=== PATIENT | male | born 1985 | race Caucasian/White ===

== ENCOUNTER 2017-01-23 18:54 | Emergency (ER) | payer SELFPAY ==
[~2017-01-23] VITALS: Ht 170.2 cm; Wt 86.3 kg
[~2017-01-23 18:54] MED LIST: CEPHALEXIN500 MG PO; NAPROSYN500 MG PO; ROBITUSSIN AC10 ML PO
[2017-01-23] MEDS ORDERED: LORTAB 10-325 M1 TAB PO (20:41)
[2017-01-23 20:54] VITALS: BP 140/86
== END 2017-01-23 21:05 | disposition home or self-care (01) | DRG 605 ==
LOC: ED 18:54
DX: S90.01XA Contusion of right ankle, initial encounter (principal); S90.31XA Contusion of right foot, initial encounter; W17.89XA Other fall from one level to another, initial encounter; X50.1XXA Overexertion from prolonged static or awkward postures, initial encounter; Y93.89 Activity, other specified; Y92.89 Other specified places as the place of occurrence of the external cause

== ENCOUNTER 2017-01-26 16:08 | Emergency (ER) | payer SELFPAY ==
[~2017-01-26] VITALS: Ht 170.2 cm; Wt 86.0 kg
[~2017-01-26 16:08] MED LIST changes: +LORTAB 10-325 M1 TAB PO
[2017-01-26] MEDS ORDERED: MOTRIN800 MG PO (16:27)
[2017-01-26] MEDS ORDERED: LORTAB 10-325 M1 TAB PO (16:27)
[2017-01-26 16:33] VITALS: BP 150/96
== END 2017-01-26 16:45 | disposition home or self-care (01) | DRG 950 ==
LOC: ED 16:08
DX: S90.31XD Contusion of right foot, subsequent encounter (principal); M25.471 Effusion, right ankle; S90.01XD Contusion of right ankle, subsequent encounter; W13.2XXD Fall from, out of or through roof, subsequent encounter; M25.474 Effusion, right foot

== ENCOUNTER 2017-06-23 12:08 | Emergency (ER) | payer OTHER ==
[~2017-06-23] VITALS: Ht 170.2 cm; Wt 88.0 kg
[~2017-06-23 12:08] MED LIST changes: +MOTRIN800 MG PO
[2017-06-23] MEDS ORDERED: PERCOCET 5/325M1 TAB PO (13:54)
[2017-06-23] MEDS ORDERED: ZOFRAN ODT4 MG PO (13:54)
[2017-06-23 15:12] VITALS: BP 133/91
== END 2017-06-23 15:50 | disposition home or self-care (01) | DRG 103 ==
LOC: ED 12:08
DX: R51 Headache (principal)

== ENCOUNTER 2018-01-03 12:39 | Emergency (ER) | payer OTHER ==
[~2018-01-03] VITALS: Ht 170.2 cm; Wt 84.0 kg
[~2018-01-03 12:39] MED LIST changes: +PERCOCET 5/325M1 TAB PO; +ZOFRAN ODT4 MG PO
[2018-01-03 13:06] VITALS: BP 122/88
[2018-01-03 14:09] LABS: HEMOGLOBIN 14.9 g/dl (14.0-18.0); IMMATURE GRANULOCYTES 0.5 % (0.0-1.0); MEAN CELL VOLUME 95.6 fL CALC (80.0-100.0); MEAN CORPUSCULAR HGB 31.6 pG CALC (26.0-32.0); NEUT# 9.42 thou/uL (1.82-7.42); RED BLOOD COUNT 4.72 mill/uL (4.70-6.10); RED CELL DISTRI WIDTH 12.9 % (11.5-15.5)
[2018-01-03 14:21] LABS: HEMATOCRIT 45.1 % (39.0-50.0)
[2018-01-03 14:43] LABS: ANION GAP 17 (6-22 (CALC)); BUN 13 mg/dL (9-20); BUN/CREATININE RATIO 14 (12-20 (CALC)); CARBON DIOXIDE 27 mmol/l (22-30); CHLORIDE 107 mmol/l (95-108); GFR > 60 ML/MIN (>=60 (CALC)); GFR FOR AFR.AMER. > 60 ML/MIN (>=60 (CALC)); SODIUM 146 mmol/l (137-146)
[2018-01-03] MEDS ORDERED: TAMSULOSIN0.4 MG PO (15:08)
[2018-01-03] MEDS ORDERED: CEPHALEXIN500 M1 PO (15:08)
[2018-01-03] MEDS ORDERED: MOTRIN400 MG PO (15:08)
[2018-01-03 16:12] LABS: URINE BILIRUBIN - DIPSTICK NEGATIVE (NEGATIVE); URINE BLOOD DIPSTICK LARGE (NEGATIVE); URINE GLUCOSE - DIPSTICK NEGATIVE (NEGATIVE); URINE KETONE NEGATIVE (NEGATIVE); URINE LEUK ESTERASE NEGATIVE (NEGATIVE); URINE NITRITE - DIPSTICK NEGATIVE (Negative); URINE PROTEIN - DIPSTICK 30 mg/dL (NEG-TRACE); URINE UROBILINOGEN - DIPSTICK 0.2 E.U./dL (0.2)
[2018-01-03 16:17] LABS: URINE CLARITY CLOUDY; URINE COLOR DK. YELLOW
[2018-01-03 16:32] LABS: URINE RBC TNTC RBC/hpf (0-5)
[2018-01-03 16:33] LABS: URINE MUCUS FEW hpf (NONE-FEW); URINE SQUAMOUS EPITHELIAL CELL FEW EPI/hpf (0-FEW)
== END 2018-01-03 16:08 | disposition home or self-care (01) | DRG 690 ==
LOC: ED 12:39
PROVIDERS: Family Medicine
DX: N13.6 Pyonephrosis (principal); R10.32 Left lower quadrant pain; R11.2 Nausea with vomiting, unspecified; Z87.442 Personal history of urinary calculi

== ENCOUNTER 2018-02-05 10:01 | Emergency (ER) | payer OTHER ==
[~2018-02-05] VITALS: Ht 170.2 cm; Wt 80.0 kg
[~2018-02-05 10:01] MED LIST changes: +CEPHALEXIN500 M1 PO; +MOTRIN400 MG PO; +TAMSULOSIN0.4 MG PO
[2018-02-05 10:46] LABS: HEMATOCRIT 42.8 % (39.0-50.0); HEMOGLOBIN 14.3 g/dl (14.0-18.0); IMMATURE GRANULOCYTES 0.4 % (0.0-1.0); MEAN CELL VOLUME 94.7 fL CALC (80.0-100.0); MEAN CORPUSCULAR HGB 31.6 pG CALC (26.0-32.0); MEAN CORPUSCULAR HGB CONC 33.4 g/L CALC (32.0-36.0); NEUT# 4.06 thou/uL (1.82-7.42); RED BLOOD COUNT 4.52 mill/uL (4.70-6.10); RED CELL DISTRI WIDTH 12.5 % (11.5-15.5)
[2018-02-05 10:58] LABS: ANION GAP 18 (6-22 (CALC)); BUN 12 mg/dL (9-20); BUN/CREATININE RATIO 12 (12-20 (CALC)); CARBON DIOXIDE 26 mmol/l (22-30); CHLORIDE 102 mmol/l (95-108); CREATININE 0.9 mg/dL (0.7-1.3); GFR > 60 ML/MIN (>=60 (CALC)); GFR FOR AFR.AMER. > 60 ML/MIN (>=60 (CALC)); SODIUM 142 mmol/l (137-146)
[2018-02-05 11:05] LABS: POTASSIUM 3.8 mmol/l (3.5-5.1)
[2018-02-05 12:40] LABS: BARBITURATES NEGATIVE (NEGATIVE); COCAINE NEGATIVE (NEGATIVE); METHADONE NEGATIVE (NEGATIVE); OXCYCODONE NEGATIVE (NEGATIVE); TETRAHYDROCANNABIONOL NEGATIVE (NEGATIVE); TRICYLIC ANTIDEPRESSANTS NEGATIVE (NEGATIVE)
[2018-02-05 13:57] VITALS: BP 109/69
== END 2018-02-05 14:03 | disposition home or self-care (01) | DRG 313 ==
LOC: ED 10:01
PROVIDERS: Family Medicine
DX: R07.89 Other chest pain (principal); F17.290 Nicotine dependence, other tobacco product, uncomplicated; R42 Dizziness and giddiness; H53.8 Other visual disturbances

== ENCOUNTER 2020-06-01 17:25 | Emergency (ER) | payer MEDICAID ==
[~2020-06-01] VITALS: Ht 170.2 cm; Wt 100.0 kg
[2020-06-01] MEDS ORDERED: PREDNISONE20 MG PO (18:58)
[2020-06-01] MEDS ORDERED: PROAIR HFA108 MCG/AC IN (18:58)
[2020-06-01 19:09] VITALS: BP 125/80
== END 2020-06-01 19:40 | disposition home or self-care (01) ==
LOC: ED 17:25
DX: J20.9 Acute bronchitis, unspecified (principal); F17.200 Nicotine dependence, unspecified, uncomplicated; Z20.828 Contact with and (suspected) exposure to other viral communicable diseases

== ENCOUNTER 2020-09-28 09:00 | Day surgery (SDC) | payer MEDICAID ==
[~2020-09-28] VITALS: Ht 172.7 cm; Wt 86.2 kg
[~2020-09-28 09:00] MED LIST changes: +PREDNISONE20 MG PO; +PROAIR HFA108 MCG/AC IN
[2020-09-28] MEDS ORDERED: ZYRTEC10 MG PO (09:19)
[2020-09-28] MEDS ORDERED: PERCOCET 5/325M1 TAB PO (12:26)
[2020-09-28 14:42] VITALS: BP 142/73
== END 2020-09-28 14:48 | disposition home or self-care (01) ==
LOC: ORM 09:00
PROVIDERS: ATTEND Surgery
DX: K40.30 Unilateral inguinal hernia, with obstruction, without gangrene, not specified as recurrent (principal); D17.6 Benign lipomatous neoplasm of spermatic cord; F17.210 Nicotine dependence, cigarettes, uncomplicated; Z20.828 Contact with and (suspected) exposure to other viral communicable diseases
CPT/HCPCS: C9290; J0131; J1100

== ENCOUNTER 2020-11-04 10:22 | Emergency (ER) | payer MEDICAID ==
[~2020-11-04] VITALS: Ht 172.7 cm; Wt 84.0 kg
[~2020-11-04 10:22] MED LIST changes: +ZYRTEC10 MG PO
[2020-11-04 11:55] LABS: HEMATOCRIT 43.9 % (39.0-50.0); HEMOGLOBIN 14.2 g/dl (14.0-18.0); IMMATURE GRANULOCYTES 0.3 % (0.0-5.0); MEAN CELL VOLUME 97.1 fL CALC (80.0-100.0); MEAN CORPUSCULAR HGB 31.4 pG CALC (26.0-32.0); MEAN CORPUSCULAR HGB CONC 32.3 g/dL CAL (32.0-36.0); NEUT# 3.43 thou/uL (1.82-7.42); RED BLOOD COUNT 4.52 mill/uL (4.70-6.10); RED CELL DISTRI WIDTH 13.5 % (11.5-15.5)
[2020-11-04 12:22] LABS: ALBUMIN 4.5 g/dL (3.2-5.0); ALKALINE PHOSPHATASE 71 u/l (38-126); ANION GAP 11 (6-22 (CALC)); BUN 12 mg/dL (9-20); BUN/CREATININE RATIO 12 (12-20 (CALC)); CARBON DIOXIDE 28 mmol/l (22-30); CHLORIDE 105 mmol/l (95-108); GFR > 60 ML/MIN (>=60 (CALC)); GFR FOR AFR.AMER. > 60 ML/MIN (>=60 (CALC)); POTASSIUM 4.1 mmol/l (3.5-5.1); SGOT/AST 28 u/l (17-59); SODIUM 141 mmol/l (137-146); TOTAL PROTEIN 7.3 g/dL (6.3-8.2)
[2020-11-04 12:31] LABS: BILIRUBIN, TOTAL 0.5 mg/dL (0.0-1.4)
[2020-11-04 13:25] LABS: URINE BILIRUBIN - DIPSTICK NEGATIVE (NEGATIVE); URINE BLOOD DIPSTICK LARGE (NEGATIVE); URINE GLUCOSE - DIPSTICK NEGATIVE (NEGATIVE); URINE KETONE NEGATIVE (NEGATIVE); URINE LEUK ESTERASE NEGATIVE (NEGATIVE); URINE NITRITE - DIPSTICK NEGATIVE (Negative); URINE PROTEIN - DIPSTICK NEGATIVE (NEG-TRACE); URINE SPECIFIC GRAVITY 1.025; URINE UROBILINOGEN - DIPSTICK 0.2 E.U./dL (0.2)
[2020-11-04 13:31] LABS: URINE COLOR DK. YELLOW
[2020-11-04 13:32] LABS: URINE RBC 25-50 RBC/hpf (0-5)
[2020-11-04] MEDS ORDERED: TAMSULOSIN0.4 MG PO (13:40)
[2020-11-04] MEDS ORDERED: TORADOL PO (13:40)
[2020-11-04] MEDS ORDERED: ZOFRAN4 MG/TAB PO (13:40)
[2020-11-04] MEDS ORDERED: PERCOCET 5/321 COMBO PO (13:40)
[2020-11-04 14:08] VITALS: BP 147/94
== END 2020-11-04 14:10 | disposition home or self-care (01) ==
LOC: ED 10:22
PROVIDERS: Student in an Organized Health Care Education/Training Program
DX: N20.0 Calculus of kidney (principal); F17.210 Nicotine dependence, cigarettes, uncomplicated; Z87.442 Personal history of urinary calculi

== ENCOUNTER 2020-11-09 10:44 | Emergency (ER) | payer MEDICAID ==
[~2020-11-09] VITALS: Ht 172.7 cm; Wt 85.0 kg
[~2020-11-09 10:44] MED LIST changes: +PERCOCET 5/321 COMBO PO; +TORADOL PO; +ZOFRAN4 MG/TAB PO
[2020-11-09 11:23] LABS: HEMATOCRIT 39.6 % (39.0-50.0); HEMOGLOBIN 12.8 g/dl (14.0-18.0); IMMATURE GRANULOCYTES 0.2 % (0.0-5.0); MEAN CELL VOLUME 97.5 fL CALC (80.0-100.0); MEAN CORPUSCULAR HGB 31.5 pG CALC (26.0-32.0); MEAN CORPUSCULAR HGB CONC 32.3 g/dL CAL (32.0-36.0); NEUT# 6.43 thou/uL (1.82-7.42); RED BLOOD COUNT 4.06 mill/uL (4.70-6.10); RED CELL DISTRI WIDTH 13.6 % (11.5-15.5)
[2020-11-09 11:42] LABS: ALBUMIN 4.5 g/dL (3.2-5.0); ALKALINE PHOSPHATASE 68 u/l (38-126); ANION GAP 12 (6-22 (CALC)); BILIRUBIN, TOTAL 0.7 mg/dL (0.0-1.4); BUN 9 mg/dL (9-20); BUN/CREATININE RATIO 9 (12-20 (CALC)); CARBON DIOXIDE 26 mmol/l (22-30); CHLORIDE 106 mmol/l (95-108); GFR > 60 ML/MIN (>=60 (CALC)); GFR FOR AFR.AMER. > 60 ML/MIN (>=60 (CALC)); LIPASE 57 u/l (23-300); POTASSIUM 3.9 mmol/l (3.5-5.1); SGOT/AST 25 u/l (17-59); SODIUM 141 mmol/l (137-146)
[2020-11-09] MEDS ORDERED: PERCOCET 5/325M1 TAB PO (13:25)
[2020-11-09 13:35] VITALS: BP 129/89
== END 2020-11-09 13:35 | disposition home or self-care (01) ==
LOC: ED 10:44
DX: N13.2 Hydronephrosis with renal and ureteral calculous obstruction (principal); F17.200 Nicotine dependence, unspecified, uncomplicated; Z87.442 Personal history of urinary calculi

== ENCOUNTER 2022-07-22 21:52 | Emergency (ER) | payer MEDICAID ==
[~2022-07-22] VITALS: Ht 172.7 cm; Wt 82.0 kg
[2022-07-22] MEDS ORDERED: KEFLEX500 MG PO (23:06)
[2022-07-22 23:15] VITALS: BP 129/85
== END 2022-07-22 23:20 | disposition home or self-care (01) ==
LOC: ED 21:52
DX: S61.432A Puncture wound without foreign body of left hand, initial encounter (principal); F17.200 Nicotine dependence, unspecified, uncomplicated; W29.4XXA Contact with nail gun, initial encounter

== ENCOUNTER 2023-07-02 21:16 | Emergency (ER) | payer MEDICAID ==
[2023-07-02] VITALS (7 sets, daily range): BP systolic 111–143; BP diastolic 69–89
[~2023-07-02 21:16] MED LIST changes: +KEFLEX500 MG PO
[2023-07-03] VITALS: BP 96/52
[2023-07-03 00:31] VITALS: BP 107/63
[2023-07-03 00:45] VITALS: BP 111/70
[2023-07-03] MEDS ORDERED: VENTOLIN HFA108 MCG IN (00:47)
[2023-07-03] MEDS ORDERED: PREDNISONE20 MG PO (00:47)
== END 2023-07-03 00:55 | disposition home or self-care (01) ==
LOC: ED 21:16
DX: U07.1 COVID-19 (principal); J40 Bronchitis, not specified as acute or chronic; F17.200 Nicotine dependence, unspecified, uncomplicated